=== PATIENT | male | born 1980 | race Caucasian/White ===

== ENCOUNTER 2018-10-12 06:33 | Emergency (ER) | payer SELFPAY ==
[2018-10-12] MEDS ORDERED: NS 1,000 ML IV ONE (06:43)
[2018-10-12] MEDS ORDERED: KETOROLAC 30 MG/1 ML SDV IVP ONE (06:43)
--- NOTE | 2018-10-12 06:49 | EDPHY ---
H & P Stated Complaint: L sided CP atarting at 0620, anxious Time Seen by Provider: 10/12/18 06:39 HPI/ROS: CHIEF COMPLAINT: Chest pain HISTORY OF PRESENT ILLNESS: Patient is a 38-year-old man with a history of alcoholism, bipolar, peptic ulcer disease as well as benzodiazepine abuse who comes to the emergency department complaining of left-sided rib/chest pain. He states that he got "blackout drunk" last night and woke up this morning with chest pain. He does not think that he fell or injured himself. He has increased pain with deep breathing or palpation of his left lower ribs anteriorly. No fevers. No cough. No shortness of breath. No previous surgeries. No previous cardiac disease. He does have mild asthma history. He does take testosterone for depression. Severity: Moderate Modifying factors: None REVIEW OF SYSTEMS: Constitutional: denies: chills, fever, recent illness, recent injury EENTM: denies: blurred vision, double vision, nose congestion Respiratory: denies: cough, shortness of breath Cardiac: See HPI denies: irregular heart rate, lightheadedness, palpitations Gastrointestinal/Abdominal: See HPI denies: diarrhea, nausea, vomiting, blood streaked stools Genitourinary: denies: dysuria, frequency, hematuria, pain Musculoskeletal: denies: joint pain, muscle pain Skin: denies: lesions, rash, jaundice, bruising Neurological: denies: headache, numbness, paresthesia, tingling, dizziness, weakness Hematologic/Lymphatic: denies: blood clots, easy bleeding, easy bruising Immunologic/allergic: denies: HIV/AIDS, transplant 10 systems reviewed and negative except as noted EXAM: GENERAL: Well-appearing, well-nourished and in no acute distress. HEAD: Atraumatic, normocephalic. EYES: Pupils equal round and reactive to light, extraocular movements intact, sclera anicteric, conjunctiva are normal. ENT: TMs normal, nares patent, oropharynx clear without exudates. Moist mucous membranes. NECK: Normal range of motion, supple without lymphadenopathy or JVD. LUNGS: Breath sounds clear to auscultation bilaterally and equal. No wheezes rales or rhonchi. HEART: Regular rate and rhythm without murmurs, rubs or gallops. ABDOMEN: Soft, nontender, normoactive bowel sounds. No guarding, no rebound. No masses appreciated. BACK: No CVA tenderness, no spinal tenderness, step-offs or deformities EXTREMITIES: Normal range of motion, no pitting or edema. No clubbing or cyanosis. NEUROLOGICAL: Cranial nerves II through XII grossly intact. Normal speech, normal gait. 5/5 strength, normal movement in all extremities, normal sensation , normal reflexes PSYCH: Normal mood, normal affect. SKIN: Warm, dry, normal turgor, no visible rashes or lesions. Source: Patient Exam Limitations: No limitations - Personal History Current Tetanus/Diphtheria Vaccine: Yes Current Tetanus Diphtheria and Acellular Pertussis (TDAP): Yes - Medical/Surgical History Hx Asthma: Yes Hx Chronic Respiratory Disease: No Hx Diabetes: No Hx Cardiac Disease: No Hx Renal Disease: No Hx Cirrhosis: No Hx Alcoholism: No Hx HIV/AIDS: No Hx Splenectomy or Spleen Trauma: No Other PMH: bipolar, asthma, ETOH abuse, Benzo Abuse - Family History Significant Family History: No pertinent family hx - Social History Smoking Status: Former smoker Alcohol Use: Sober Drug Use: None Constitutional: Initial Vital Signs Temperature (C) 36.8 C 10/12/18 06:39 Heart Rate 96 10/12/18 06:39 Respiratory Rate 20 10/12/18 06:39 Blood Pressure 129/101 H 10/12/18 06:39 O2 Sat (%) 93 10/12/18 06:39 O2 Delivery Mode Room Air Allergies/Adverse Reactions: No Known Allergies Allergy (Unverified 10/12/18 06:38) Home Medications: Medication Instructions Recorded Ambien 05/29/18 Lamictal 05/29/18 Omeprazole 05/29/18 Testosterone 05/29/18 Wellbutrin Xl 05/29/18 Xanax 05/29/18 Medical Decision Making ED Course/Re-evaluation: 7:55 a.m. we discussed the imaging and lab results which are reassuring. The patient has reproducible chest wall pain. He suspects that he may have fall or bumped into something while he was intoxicated last night. He feels comfortable going home. He declines further workup or observation. Discussed indications for returning Differential Diagnosis: Partial list of the Differential diagnosis considered include but were not limited to; chest wall pain, fracture, acute coronary disease, PE, pneumothorax and although unlikely based on the history and physical exam, I also considered pneumonia, dissection, pancreatitis, peptic ulcer disease. I discussed these differential diagnoses and the plan with the patient as well as the usual and expected course. The patient understands that the diagnosis is provisional and that in medicine we are not always correct and that further workup is often warranted. Usual and customary warnings were given. All of the patient's questions were answered. The patient was instructed to return to the emergency department should the symptoms at all worsen or return, otherwise to followup with the physician as we discussed. - Data Points Laboratory Results: Laboratory Results 10/12/18 06:35 10/12/18 06:35 10/12/18 10/12/18 10/12/18 06:51 06:35 06:35 WBC 9.07 10^3/uL 10^3/uL (3.80-9.50) RBC 4.81 10^6/uL 10^6/uL (4.40-6.38) Hgb 15.4 g/dL g/dL (13.7-17.5) Hct 44.4 % % (40.0-51.0) MCV 92.3 fL fL (81.5-99.8) MCH 32.0 pg pg (27.9-34.1) MCHC 34.7 g/dL g/dL (32.4-36.7) RDW 12.9 % % (11.5-15.2) Plt Count 244 10^3/uL 10^3/uL (150-400) MPV 8.8 fL fL (8.7-11.7) Neut % (Auto) 64.6 % % (39.3-74.2) Lymph % (Auto) 25.7 % % (15.0-45.0) Tillman % (Auto) 6.8 % % (4.5-13.0) Eos % (Auto) 2.2 % % (0.6-7.6) Baso % (Auto) 0.3 % % (0.3-1.7) Nucleat RBC Rel Count 0.0 % % (0.0-0.2) Absolute Neuts (auto) 5.85 10^3/uL 10^3/uL (1.70-6.50) Absolute Lymphs (auto) 2.33 10^3/uL 10^3/uL (1.00-3.00) Absolute Monos (auto) 0.62 10^3/uL 10^3/uL (0.30-0.80) Absolute Eos (auto) 0.20 10^3/uL 10^3/uL (0.03-0.40) Absolute Basos (auto) 0.03 10^3/uL 10^3/uL (0.02-0.10) Absolute Nucleated RBC 0.00 10^3/uL 10^3/uL (0-0.01) Immature Gran % 0.4 % % (0.0-1.1) Immature Gran # 0.04 10^3/uL 10^3/uL (0.00-0.10) PT INR APTT D-Dimer Sodium 146 mEq/L H mEq/L (135-145) Potassium 4.1 mEq/L mEq/L (3.3-5.0) Chloride 105 mEq/L mEq/L (97-110) Carbon Dioxide 26 mEq/l mEq/l (22-31) Anion Gap 15 mEq/L H mEq/L (6-14) BUN 9 mg/dL mg/dL (7-23) Creatinine 0.8 mg/dL mg/dL (0.7-1.3) Estimated GFR > 60 Glucose 94 mg/dL mg/dL (70-100) Calcium 9.3 mg/dL mg/dL (8.5-10.4) Total Bilirubin 0.3 mg/dL mg/dL (0.1-1.4) Conjugated Bilirubin 0.2 mg/dL mg/dL (0.0-0.5) Unconjugated Bilirubin 0.1 mg/dL mg/dL (0.0-1.1) AST 38 IU/L IU/L (17-59) ALT 55 IU/L IU/L (21-72) Alkaline Phosphatase 82 IU/L IU/L (38-126) POC Troponin I 0.00 ng/mL ng/mL (0.00-0.08) Total Protein 7.6 g/dL g/dL (6.3-8.2) Albumin 4.9 g/dL g/dL (3.5-5.0) Lipase 74 IU/L IU/L (23-300) 10/12/18 06:35 WBC RBC Hgb Hct MCV MCH MCHC RDW Plt Count MPV Neut % (Auto) Lymph % (Auto) Tillman % (Auto) Eos % (Auto) Baso % (Auto) Nucleat RBC Rel Count Absolute Neuts (auto) Absolute Lymphs (auto) Absolute Monos (auto) Absolute Eos (auto) Absolute Basos (auto) Absolute Nucleated RBC Immature Gran % Immature Gran # PT 12.4 SEC SEC (12.0-15.0) INR 0.90 (0.83-1.16) APTT 26.7 SEC SEC (23.0-38.0) D-Dimer < 0.27 ug/mLFEU ug/mLFEU (0.00-0.50) Sodium Potassium Chloride Carbon Dioxide Anion Gap BUN Creatinine Estimated GFR Glucose Calcium Total Bilirubin Conjugated Bilirubin Unconjugated Bilirubin AST ALT Alkaline Phosphatase POC Troponin I Total Protein Albumin Lipase Medications Given: Discontinued Medications Sodium Chloride (Ns) 1,000 mls @ 0 mls/hr IV EDNOW ONE; Wide Open PRN Reason: Protocol Stop: 10/12/18 06:44 Last Admin: 10/12/18 06:59 Dose: 1,000 mls Ketorolac Tromethamine (Toradol) 15 mg IVP EDNOW ONE Stop: 10/12/18 06:44 Last Admin: 10/12/18 06:59 Dose: 15 mg Point of Care Test Results: Chemistry 10/12/18 06:51 POC Troponin I 0.00 ng/mL ng/mL (0.00-0.08) Departure - Departure Disposition: Home, Routine, Self-Care Clinical Impression: Chest wall pain Condition: Fair Instructions: Chest Wall Pain (ED) Referrals: [facility] [Outside] - As per Instructions Petey Terry MD [Primary Care Provider] - 2-3 days, if not improved
[2018-10-12 06:51] LABS: PLATELET COUNT 244 10^3/uL (150-400)
--- NOTE | 2018-10-12 06:57 | CPEKG ---
Test Reason : OPEN Blood Pressure : / mmHG Vent. Rate : 092 BPM Atrial Rate : 093 BPM P-R Int : 154 ms QRS Dur : 080 ms QT Int : 358 ms P-R-T Axes : 046 046 053 degrees QTc Int : 443 ms Sinus rhythm Confirmed by Remy Leo ([id number]) on 10/12/2018 6:56:14 AM Referred By: Confirmed By:Remy Leo
[2018-10-12 07:00] LABS: PROTIME(PATIENT) 12.4 SEC (12.0-15.0)
[2018-10-12 08:02] VITALS: BP 120/77
== END 2018-10-12 08:13 | disposition home or self-care (01) ==
LOC: EDUNIT#
DX: R07.89 Other chest pain (principal); E86.9 Volume depletion, unspecified; F10.10 Alcohol abuse, uncomplicated; F31.9 Bipolar disorder, unspecified; Z79.899 Other long term (current) drug therapy
CPT/HCPCS: 84484-PO; 96374; J1885

== ENCOUNTER 2018-11-04 20:53 | Emergency (ER) | payer OTHER ==
[2018-11-04 20:58] VITALS: BP 140/90
[2018-11-04] MEDS ORDERED: SKIN ADHESIVE (DERMABOND) 1 EACH TP ONE (22:05)
--- NOTE | 2018-11-04 22:23 | EDPHY ---
H & P Stated Complaint: LEFT INDE FINGER LAC, 2 HRS , CUTTING VEGETABLES Time Seen by Provider: 11/04/18 21:59 HPI/ROS: Chief complaint: Left pointer finger laceration History of present illness: 38-year-old male presents to the emergency department for left finger laceration. He cut it with a knife while cutting vegetables. He has sustained a laceration to the tip of the finger. Mild pain. Bleeding controlled with a dressing. No report of abnormal coolness or paresthesias in the finger. His tetanus is up-to-date. - Personal History Current Tetanus/Diphtheria Vaccine: Yes - Medical/Surgical History Hx Asthma: Yes Hx Chronic Respiratory Disease: No Hx Diabetes: No Hx Cardiac Disease: No Hx Renal Disease: No Hx Cirrhosis: No Hx Alcoholism: No Hx HIV/AIDS: No Hx Splenectomy or Spleen Trauma: No Other PMH: bipolar, asthma, ETOH abuse, Benzo USE - Social History Smoking Status: Never smoked - Physical Exam Exam: General: Alert, nontoxic. Skin: Patient has a 0.5 cm superficial laceration lateral to the fingernail with extension under the fingernail. The nail bed does not appear to be disrupted. Musculoskeletal: Patient is moving the finger well in all [place] in the DIP, PIP and MCP joint with good strength. Vascular: Capillary refill brisk in the finger. Neurologic: Sensation intact using light touch and two-point discrimination. Constitutional: Initial Vital Signs Temperature (C) 36.7 C 11/04/18 20:55 Heart Rate 113 H 11/04/18 20:55 Respiratory Rate 20 11/04/18 20:55 Blood Pressure 140/90 H 11/04/18 20:55 O2 Sat (%) 93 11/04/18 20:55 O2 Delivery Mode Room Air Allergies/Adverse Reactions: No Known Allergies Allergy (Unverified 11/05/18 04:22) Home Medications: Medication Instructions Recorded Ambien 05/29/18 Lamictal 05/29/18 Omeprazole 05/29/18 Testosterone 05/29/18 Wellbutrin Xl 05/29/18 Xanax 05/29/18 Medical Decision Making Procedures: Procedure: Laceration repair. Verbal consent was obtained from the patient. The 0.5 cm laceration on the left index finger was irrigated, draped and explored to its base with a gloved finger. There were no deep structures involved. No tendon injury was identified. The wound was repaired with Dermabond. The wound repair was simple. The procedure was performed by myself. ED Course/Re-evaluation: Patient seen under the supervision of my secondary supervising physician Dr. Shay Tapia. Patient presents with a laceration to his left index finger. The laceration appears superficial with good approximation. The finger is neurovascularly intact. He has good musculoskeletal control. It is amenable to Dermabond. Home care is discussed. He is to follow up with a primary care doctor for recheck. Return precautions are given. Patient voiced understanding and agreement with plan. Differential Diagnosis: Included but not limited to superficial laceration, deep structure injury, nail injury Departure - Departure Disposition: Home, Routine, Self-Care Clinical Impression: Finger laceration Qualifiers: Encounter type: initial encounter Finger: index finger Damage to nail status: with damage Foreign body presence: without foreign body Laterality: left Qualified Code(s): S61.311A - Laceration without foreign body of left index finger with damage to nail, initial encounter Condition: Good Instructions: Finger Laceration (ED), Skin Adhesive Care (ED) Additional Instructions: Follow-up with a primary care doctor for recheck If symptoms worsen or new symptoms develop return to the emergency department for recheck Referrals: Petey Terry MD [Primary Care Provider] - As per Instructions
== END 2018-11-04 22:42 | disposition home or self-care (01) ==
PROC: 0HQGXZZ Repair Left Hand Skin, External Approach (ICD-10-PCS; principal; 2018-11-04)
DX: S61.318A Laceration without foreign body of other finger with damage to nail, initial encounter (principal); W26.0XXA Contact with knife, initial encounter; Y93.G1 Activity, food preparation and clean up; Y92.9 Unspecified place or not applicable; Y99.9 Unspecified external cause status
CPT/HCPCS: L3925

== ENCOUNTER 2018-11-05 04:18 | Emergency (ER) | payer OTHER ==
--- NOTE | 2018-11-05 05:02 | EDPHY ---
H & P Stated Complaint: pain from finger lac, seen earlier tonight Time Seen by Provider: 11/05/18 04:23 HPI/ROS: HPI The patient presents with left index finger pain status post laceration which occurred last night. He was seen in the emergency department and his laceration was treated with Dermabond. He went home and felt fine but developed increasing pain over the course of the morning. He describes the pain as an achy pain of his finger tip. He took some Brush with slight improvement. As he denies any increased bleeding, fever, redness of the finger. He does have a splint in place.. REVIEW OF SYSTEMS 10 systems were reviewed and negative with the exception of the elements mentioned in the history of present illness. PMHx: History of anxiety Soc Hx: Housed PHYSICAL General Appearance: Alert, no distress Respiratory: Breathing comfortably Neurological: A&O, sensation intact to light touch of his fingertips Skin: Warm and dry, no rashes Extremities: Left index finger with superficial laceration involving the nail bed and lateral aspect of the distal finger tip, small amount of active bleeding over the nail bed Psychiatric: Patient is oriented X 3, there is no agitation Source: Patient Exam Limitations: No limitations - Personal History Current Tetanus/Diphtheria Vaccine: Yes Current Tetanus Diphtheria and Acellular Pertussis (TDAP): Yes - Medical/Surgical History Hx Asthma: Yes Hx Chronic Respiratory Disease: No Hx Diabetes: No Hx Cardiac Disease: No Hx Renal Disease: No Hx Cirrhosis: No Hx Alcoholism: No Hx HIV/AIDS: No Hx Splenectomy or Spleen Trauma: No Other PMH: bipolar, asthma, ETOH abuse, Benzo USE - Social History Smoking Status: Never smoked Constitutional: Initial Vital Signs Temperature (C) 36.7 C 11/05/18 04:23 Heart Rate 78 11/05/18 04:23 Respiratory Rate 16 11/05/18 04:23 Blood Pressure 154/100 H 11/05/18 04:23 O2 Sat (%) 97 11/05/18 04:23 O2 Delivery Mode Room Air Allergies/Adverse Reactions: No Known Allergies Allergy (Unverified 11/05/18 04:22) Home Medications: Medication Instructions Recorded Ambien 05/29/18 Lamictal 05/29/18 Omeprazole 05/29/18 Testosterone 05/29/18 Wellbutrin Xl 05/29/18 Xanax 05/29/18 Medical Decision Making Procedures: Procedure digital block: Using bupivacaine 0.5%, I injected 2 mL just distal to the crease of the MCP on the palmar aspect of the left index finger. Patient tolerated procedure well without any immediate complications. Differential Diagnosis: 38-year-old male with finger pain after sustaining finger laceration yesterday. I removed his splint and dressing and he does have a nail bed laceration that extends laterally to his distal finger. As there is a small amount of bleeding overlying the nail bed. There is no swelling, erythema. He is neurovascularly intact. I doubt wound infection, nerve injury, ischemia. I performed a digital block which helped his pain. Because of some bleeding surrounding the nail bled I placed additional Dermabond. Departure - Departure Disposition: Home, Routine, Self-Care Clinical Impression: Laceration of left index finger, Finger pain, left Condition: Good Instructions: Finger Laceration (ED) Referrals: Petey Terry MD [Primary Care Provider] - As per Instructions
[2018-11-05] MEDS ORDERED: SKIN ADHESIVE (DERMABOND) 1 EACH TP ONE ×2 (05:11→05:18)
[2018-11-05 05:51] VITALS: BP 135/84
== END 2018-11-05 05:52 | disposition home or self-care (01) ==
PROC: 3E0T3BZ Introduction of Anesthetic Agent into Peripheral Nerves and Plexi, Percutaneous Approach (ICD-10-PCS; principal; 2018-11-05)
DX: S61.311D Laceration without foreign body of left index finger with damage to nail, subsequent encounter (principal); X58.XXXA Exposure to other specified factors, initial encounter; Y92.9 Unspecified place or not applicable; Y93.9 Activity, unspecified; Y99.9 Unspecified external cause status

== ENCOUNTER 2019-05-01 19:13 | Emergency (ER) | payer OTHER | END 2019-05-01 21:31 | disposition home or self-care (01) ==